=== PATIENT | female | born 1965 | race Caucasian/White ===

== ENCOUNTER 2018-10-23 01:13 | Observation (INO) | payer SELFPAY ==
[2018-10-23 02:25] LABS: #Basophils 0.1 thou/uL (0.0-0.2); #Eosinphils 0.3 thou/uL (0.0-0.7); #Lymphocytes 2.5 thou/uL (1.20-3.40); #Monocytes 0.7 thou/uL (0.11-0.59); #Neutrophils 3.8 thou/uL (1.40-6.50); %Basophils 0.9 % (0.0-1.0); %Eosinophils 4.1 % (0.0-10.0); %Lymphocytes 33.9 % (21.0-51.0); %Monocytes 9.8 % (0.0-10.0); %Neutrophils 51.3 % (42.0-75.0); Hemoglobin 13.8 g/dL (12.0-16.0); Mean Corpuscular HGB CONC 32.9 g/dL (32.0-36.0); Mean Corpuscular Hemoglobin 28.3 pg (27.0-31.0); Mean Corpuscular Volume 86.1 fL (78.0-98.0); Mean Platelet Volume 6.2 fL (7.4-10.4); Platelet Count 265 thou/uL (130-400); RBC Distribution Width 11.9 % (11.5-14.5); Red Blood Cell (RBC) Count 4.87 mill/uL (4.20-5.40); White Blood Cell (WBC) Count 7.4 thou/uL (4.8-10.8)
[2018-10-23] MEDS ORDERED: metroNIDAZOLE 500 MG/100 ML BAG ONE (02:43)
[2018-10-23] MEDS ORDERED: Ketorolac Tromethamine 30 MG/ML VIAL ONE (02:43)
[2018-10-23] MEDS ORDERED: Fentanyl 100 MCG/2 ML VIAL ONE ×2 (02:43→13:07)
[2018-10-23 02:49] LABS: CRP (Inflammatory) Less than 0.50 mg/dL (= or < 0.5); Magnesium 2.2 mg/dL (1.6-2.6)
[2018-10-23 02:51] LABS: ALT (SGPT) 12 U/L (8-55); AST (SGOT) 16 U/L (5-34); Alkaline Phosphatase 107 U/L (40-150); Anion Gap 10 mmol/L (10-20); BUN (Urea Nitrogen) 13 mg/dL (9.8-20.1); Bilirubin, Total 0.2 mg/dL (0.2-1.2); Calc. Creatinine Clearance 0 mL/min (70-130); Calcium 9.5 mg/dL (7.8-10.44); Carbon Dioxide 28 mmol/L (22-29); Chloride 104 mmol/L (98-107); Estimated GFR-MDRD 51; Globulin 3.1 g/dL (2.4-3.5); Glucose 80 mg/dL (70-105); Potassium 3.8 mmol/L (3.5-5.1); Protein, Total 7.1 g/dL (6.0-8.3); Sodium 138 mmol/L (136-145)
[2018-10-23 04:50] LABS: Bilirubin Negative (Negative); Blood, Urine Negative (Negative); Clarity CLEAR (Clear); Glucose, Urine (Dipstick) Negative (Negative); Leukocyte Moderate (Negative); Nitrite Negative (Negative); Protein, Urine (Dipstick) Negative (Neg-Trace); Specific Gravity, Urine 1.013 (1.002-1.036); Urobilinogen 0.2 mg/dL (0.2-1.0); pH, Urine 6.5 (5.0-9.0)
[2018-10-23 04:54] LABS: Bacteria/HPF Rare-Few HPF (None Seen); Hyaline Casts/LPF 0-3 HYALINE CAST LPF (0-3 Hyaline); Pathc Cast-AUWi Flag 0.14 (0-2.49); RBC/HPF None Seen HPF (0-3)
[2018-10-23] MEDS ORDERED: Sodium Chloride 0.45% 1,000 ML IV SCH (07:30)
--- NOTE | 2018-10-23 08:58 | RAD ---
RIGHT FOOT 3 VIEWS: Date: 10/23/18 INDICATION: Right foot pain. COMPARISON: None. FINDINGS: There is a retained metallic foreign body seen within the plantar soft tissues, slightly lateral to t he mid shaft of the fourth metatarsal. This is suspicious for a needle. 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 Lisfranc alignment, however, remains preserved. There is scattere d osteoarthrosis of the forefoot. No acute fracture is evident. IMPRESSION: Radiopaque foreign body within the plantar soft tissues of the right foot suspicious for an embedded needle. POS: [facility]
[2018-10-23] MEDS: Morphine 2 MG/ML SYRINGE SLOW IVP PRN ×2 (09:25→17:22)
[2018-10-23] MEDS ORDERED: Dexamethasone 20 MG/5 ML VIAL ONE (10:47)
[2018-10-23] MEDS ORDERED: Lidocaine 1% PF 5 ML VIAL ONE (10:47)
[2018-10-23] MEDS ORDERED: Ondansetron PF 4 MG/2 ML Vial ONE (10:47)
[2018-10-23] MEDS ORDERED: PROPOFOL 200 MG/20 ML VIAL ONE (10:47)
[2018-10-23] MEDS ORDERED: metroNIDAZOLE 500 MG in Premix Bag 1 BAG IVPB SCH (12:00)
[2018-10-23] MEDS ORDERED: Midazolam HCl 2 mg/2 ml Vial ONE (12:58)
[2018-10-23] MEDS ORDERED: Bupivacaine PF 0.5% 30 ML VIAL ONE (13:14)
[2018-10-23] MEDS ORDERED: Neomycin-Polymyxin 1 ML AMP ONE (13:52)
[2018-10-23 15:53] VITALS: TEMP 98.2
--- NOTE | 2018-10-23 16:27 | RAD ---
THREE VIEWS OF THE RIGHT FOOT: 10/23/18 COMPARISON: 10/23/18 HISTORY: Right foot pain postoperative view of the third digit. FINDINGS: Three views of the right foot shows removal of the majority of the radiopaque foreign body between th e fourth and fifth metatarsal bones. No fracture or dislocation are seen. There are severe degenerati ve changes in the great toe tarsometatarsal joint. Small osseous erosions are seen in the proximal ph alanges adjacent to the metatarsophalangeal joints. IMPRESSION: Removal of part of the radiopaque foreign body. POS: [facility]
[2018-10-23 16:58] VITALS: BP 136/60
--- NOTE | 2018-10-23 16:59 | HP ---
CHIEF COMPLAINT: Foot pain. HISTORY: This patient is a 53-year-old female, who apparently dropped about 30 pound log of firewood on her right foot 4 days ago. She subsequently developed swelling, redness, and heat over the dorsum of that foot. She had no radiation of that pain, and she was able to ambulate on it adequately. She denied any associated fevers, chills, or night sweats. REVIEW OF SYSTEMS: All others systems reviewed. Pertinent positives and negatives documented in the HPI. Specifically, she had no nausea, vomiting, or shortness of breath. PAST MEDICAL HISTORY: COPD, anxiety, depression/bipolar, and relatively low blood pressure. PAST SURGICAL HISTORY: Hysterectomy, cholecystectomy, and bilateral inguinal herniorrhaphies. She had right carpal tunnel release and right ulnar nerve entrapment with release. FAMILY HISTORY: Mother had cancer. Father is unknown. SOCIAL HISTORY: The patient smokes half a pack of cigarettes. No alcohol. No drugs. She previously worked in a paper factory. She is currently full code and made it clear that she does not want to be kept alive long-term with machines and her sister would be her surrogate decision maker. ALLERGIES: NONE. CURRENT MEDICATIONS: Seroquel 400 mg at bedtime, hydroxyzine 50 mg t.i.d. p.r.n., BuSpar 30 mg p.o. b.i.d., gabapentin 600 mg p.o. t.i.d., and Prozac 40 mg daily. PHYSICAL EXAMINATION: VITAL SIGNS: Temperature 97.8, pulse 75, respirations 16, O2 saturation 96%, and blood pressure 109/64. GENERAL APPEARANCE: Age-appropriate female, thin, in no distress. Awake, alert, oriented, pleasant, and cooperative. HEENT: PERRL. No OP lesions. NECK: Supple and symmetric. HEART: Regular rate and rhythm, but she does have a 2/6 murmur at the apex. LUNGS: Clear to auscultation bilaterally with good chest wall expansion and air exchange. ABDOMEN: Soft, nontender, nondistended. Positive bowel sounds. EXTREMITIES: No generalized edema noted. She does have good dorsalis pedis and posterior tibial pulses in both lower extremities. The right foot demonstrates approximately a 6 cm area of erythema, warmth, and exquisite tenderness to palpation covering the right second metatarsal to the lateral aspect of the foot. There are no visible breaks in the skin either on the plantar surface or the dorsal surface. Sensation is intact. LABORATORY DATA: White count 7.4, hemoglobin 13.8, and platelets 265. Sodium 138, potassium 3.8, BUN 13, creatinine 1.12, calcium 9.5, and mag 2.2. LFTs normal. CRP is less than 0.5. Urinalysis shows moderate leukocyte esterase, 11 to 20 white cells. IMAGING STUDIES: Foot x-ray demonstrates a radiopaque foreign body within the plantar soft tissue of the right foot suspicious for an imbedded needle. IMPRESSION AND PLAN: 1. Right foot pain with erythema, warmth, and tenderness. The patient appears to have a foreign body in that foot in the general area of her symptoms, although she is unaware of how it might have possibly been imbedded in her foot. She certainly denies anything that would have resulted in the penetrating metallic object recently. She did have a contusion to the foot secondary to dropping a firewood log on it and it is unclear at this point whether the patient is having some type of foreign body reaction, a true infection, or simply a reaction to the contusion. She appears to be afebrile. Her white count is normal and her sedimentation rate is low. She has received vancomycin and Flagyl presumably to cover her anaerobes. I have discussed this with the patient. We will talk to Surgery about the possibility of having it removed. In the meantime, we will give her pain control and deep venous thrombosis prophylaxis. 2. Renal. The patient's creatinine is slightly elevated with a GFR of 50. It is unclear what her baseline is. We will renally dose medications and avoid nephrotoxins. 3. History of tobacco abuse. 4. History of bipolar disorder with anxiety. Continue with her usual home medications. Job ID: [id number]
--- NOTE | 2018-10-23 21:31 | OP ---
DATE OF PROCEDURE: 10/23/2018 PREOPERATIVE DIAGNOSIS: Retained foreign body, right foot. POSTOPERATIVE DIAGNOSIS: Retained foreign body, right foot. PROCEDURE PERFORMED: Excision of retained foreign body, right foot. PATHOLOGY: 1. Retained foreign body, right foot, sent to path for evaluation. 2. Cultures taken from the right foot, gram stain aerobic and anaerobic cultures. ANESTHESIA: Local monitored anesthetic care. HEMOSTASIS: Pneumatic tourniquet about the right ankle at 250 mmHg. ESTIMATED BLOOD LOSS: None. MATERIALS: 4-0 Vicryl, 3-0 nylon. INJECTABLES: 10 mL of 0.5% Marcaine plain preoperatively. COMPLICATIONS: None. DESCRIPTION OF PROCEDURE: The patient was brought to the operative suite, placed supine on the operating table. A well-padded tourniquet placed about the right ankle. Foot was prepped in an aseptic manner. Time-out was performed, identifying the correct patient, procedure, and operative site. Blood was exsanguinating from the foot and tourniquet was raised to 250 mmHg. Utilizing a fluoroscopy, the metallic foreign body was strangulated. A 2 cm linear longitudinal incision was made between the 4th and 5th metatarsals. Blunt dissection through the subcutaneous tissues avoiding vital structures, coagulating bleeders as necessary. The foreign body was identified and removed. It was noted to black, fragmented, and friable. Small black fragments were flaking off as it was being removed. The wound and fragment were cultured and sent for aerobic and anaerobic cultures. The majority of the foreign body was sent to Pathology. Wound was irrigated with approximately 500 mL of saline with 1 unit irrigant. Reexploration of 2 small flake fragments with exhaustive measures, we were unable to identify the location of these within the soft tissues as they were quite miniscule. The subcutaneous tissues were repaired with 4-0 Vicryl and skin was repaired with 3-0 nylon. The patient tolerated the procedure and anesthesia well. She will be transferred out of the operative suite to the post-anesthetic care unit for a short period of monitoring and then she will be transferred back to our room. Once the patient is in stable condition, I can recommend that she be discharged home with oral antibiotics and followup with me in 1 week; for now, the dressing to be left clean, dry, and intact. Job ID: [id number]
[2018-10-24] MEDS ORDERED: Vancomycin HCl 1 GM in Premix Bag 1 BAG IVPB SCH (03:00)
--- NOTE | 2018-10-26 15:34 | DIS ---
DATE OF ADMISSION: 10/23/2018 DATE OF DISCHARGE: 10/23/2018 DISCHARGE DIAGNOSES: 1. Right foot cellulitis. 2. Right foot contusion. 3. Foreign body, right foot. 4. Mild renal insufficiency with unknown baseline. 5. History of tobacco abuse. 6. History of bipolar disorder with anxiety. HISTORY OF PRESENT ILLNESS: The patient is a 53-year-old female, who presented via the emergency department. The patient initially had dropped a log of firewood on her right foot approximately 3 days prior to her admission. She subsequently developed pain, tenderness, and redness and swelling in that foot. She was noted to have a white count of 7.4. However, x-rays of her foot did not demonstrate any fracture, but did reveal what appeared to be a needle-like metallic foreign body in the foot in the general vicinity where she was having her pain and physical findings. HOSPITAL COURSE: The patient was admitted to the hospital, started on antibiotics. Podiatry was called, who came and evaluated the patient and promptly took her to the operating room where the foreign body was subsequently removed. It appeared to be a metallic object, potentially consistent with a needle. There had been no breaks in the skin to indicate that this had been a recent implantation, and according to bookkeeping assistant, the object itself appeared to be significantly corroded and had likely not been recently implanted. The bookkeeping assistant was comfortable with the patient going home on oral antibiotics as was I. Therefore, the patient was discharged to home postoperatively. She was re-evaluated by me and had a postop walking boot placed and was comfortable with the disposition plan. DISPOSITION: The patient is discharged to home. DIET: She will be on a regular diet. ACTIVITY: Her activity level is as tolerated. MEDICATIONS: She will be on, 1. Augmentin 875 one p.o. b.i.d. 2. Florastor 250 daily. 3. Tramadol 50 mg q.6 hours p.r.n. She will continue with her usual home regimen including; 1. BuSpar 30 b.i.d. 2. Seroquel 400 at bedtime. 3. Gabapentin 600 t.i.d. 4. Prozac 40 mg daily. 5. Hydroxyzine 50 mg t.i.d. as needed. FOLLOWUP: She is to follow up with Dr. Bishop and her PCP within one week. She can return to the emergency department should she have any problems prior to that time. Job ID: [id number]
== END 2018-10-23 17:35 | disposition home or self-care (01) ==
LOC: ERS 01:13 → 2SW 04:50
PROVIDERS: ADMIT Internal Medicine; ATTEND Internal Medicine
PROC: 0JCQ0ZZ Extirpation of Matter from Right Foot Subcutaneous Tissue and Fascia, Open Approach (ICD-10-PCS; principal; 2018-10-23)
DX: M79.5 Residual foreign body in soft tissue (principal); L03.115 Cellulitis of right lower limb; N28.9 Disorder of kidney and ureter, unspecified
CPT/HCPCS: 36415; 76001; 80053; 81003; 81015; 83735; 85025; 86140; 87070; 87205; 88300; 96365; 96368; 96375; 96376; G0378; J1100; J1885; J2001; J2250; J2270; J2405; J2704; J3010; J3370; S0020